=== PATIENT | male | born 2000 | race Caucasian/White ===

== ENCOUNTER → 2020-05-26 12:57 | Outpatient (CLI) | payer OTHER, SELFPAY ==
--- NOTE | ~2020-05-26 | CT_ITS ---
EXAMINATION: CT sinus wo con DATE: 05/26/2020 13:13 INDICATION: Chronic sinusitis TECHNIQUE: Computed tomography (CT) of the paranasal sinuses was performed without intravenous contra st. The dose-length product was 288.85 mGy-cm. Automated exposure control and iterative reconstructio n technique were employed. Automated exposure control and iterative reconstruction technique were emp loyed. COMPARISON: None FINDINGS: Minimal mucosal thickening left maxillary sinus. The remainder of the paranasal sinuses are pneumatized without significant mucosal thickening, fluid or mucoperiosteal reaction. No significant nasal septal deviation. Ostiomeatal units are patent. Mastoids are pneumatized. IMPRESSION: 1. Mild left maxillary sinus disease. Reviewed, dictated and finalized at location A. [employer]
== END ==
PROVIDERS: Visit Provider Otolaryngology
DX: J32.0 Chronic maxillary sinusitis (principal)
CPT/HCPCS: 70486